=== PATIENT | male | born 1940 | race Caucasian/White ===

== ENCOUNTER 2017-06-08 21:11 | Inpatient (IN) ==
[2017-06-08 22:25] LABS: Basophils % 0.3 %; Eosinophils # 0.1 K/mcL (0.0-0.6); Eosinophils % 1.2 %; Hematocrit 42.7 % (37.5-50.1); Hemoglobin 14.4 g/dL (12.9-16.9); Immature Granulocytes % 0.5 % (0-4); Lymphocytes # 0.9 K/mcL (0.6-4.6); Lymphocytes % 8.2 %; Mean Corpuscular HGB Conc 33.7 g/dL (31.6-35.5); Mean Corpuscular Hemoglobin 29.1 pg (28.0-33.3); Mean Corpuscular Volume 86.3 fL (83.0-100.0); Mean Platelet Volume 9.9 fL (9.4-12.4); Monocytes % 8.7 %; Neutrophils # 9.2 K/mcL (1.6-8.9); Platelet Count 125 K/mcL (140-400); Red Blood Count 4.95 M/mcL (4.19-5.50); Red Cell Distribution Width 13.8 % (11.5-14.5); Segmented Neutrophils % 81.1 %
[2017-06-08 22:46] LABS: BUN/Creatinine Ratio 24 (6-26); Blood Urea Nitrogen 25 mg/dL (8-23); Calcium 9.5 mg/dL (8.6-10.3); Carbon Dioxide 23 mEq/L (23-29); Chloride 107 mEq/L (98-107); Glucose 145 mg/dL (70-105); Osmolality,Calculated 291 (280-300); Potassium 4.4 mEq/L (3.5-5.1); Sodium 137 mEq/L (136-145); eGFR For African Americans > 60 (> 60); eGFR For Non-African Americans > 60 (> 60)
[2017-06-08 22:47] LABS: Troponin I 0.03 ng/mL (< 0.04)
[2017-06-08] MEDS ORDERED: Isovue-370 500 ML INFUS..BTL IV ONE (22:47)
[2017-06-08] MEDS ORDERED: 0.9 % Sodium Chloride 1,000 ML IVC ONE (22:48)
--- NOTE | 2017-06-08 23:01 | Emergency Department Note ---
Disposition Clinical Impression: Community acquired pneumonia, Elevated lactic acid level, Sepsis Disposition: Admitted As Inpatient Condition: Good Referrals: Lisandra Stevenson CNP [Primary Care Provider] - Forms: ED Satisfaction Letter Time of Disposition: 02:15 SOB HPI - General Chief Complaint: ED Shortness of Breath/Dyspnea Stated Complaint: Possible pneumonia Time Seen by Provider: 06/08/17 22:43 Source: family Mode of arrival: ambulatory Limitations: no limitations Nursing Notes Reviewed: Yes Vital Signs Reviewed: Yes - History of Present Illness Patient presents to the ED with the chief complaint of "I think I have pneumonia ". Patient has an extensive coronary artery disease, history with multiple bypasses and stents. Also has a defibrillator. States that he has had a cough for the last 3 days or so. He said some intermittent chest pain over the last couple weeks that is poorly localized and he states just hurts. States that today he became much more short of breath than usual. States that he could barely get up from his couch to walk into the kitchen without becoming winded. Has had subjective fever and chills and some diaphoresis. Reports he was having abdominal pain earlier in the day but that resolved. No vomiting or diarrhea. Some mild nausea. No rash or pain or swelling in his legs. States that he has a history of CHF, but is no longer on Lasix because he has not had any problems in a while. - Related Data Home Medications Medication Instructions Recorded Confirmed Albuterol Sulfate [Ventolin Hfa] 18 gm IH Q4H PRN 05/14/17 05/14/17 Aspirin [Ecotrin] 325 mg PO DAILY 05/14/17 05/14/17 Carvedilol 12.5 mg PO BID 05/14/17 05/14/17 Digoxin [Lanoxin] 250 mcg PO DAILY 05/14/17 05/14/17 Escitalopram [Lexapro] 10 mg PO DAILY 05/14/17 05/14/17 Famotidine [Heartburn Prevention] 20 mg PO BID 05/14/17 05/14/17 Finasteride [Proscar] 5 mg PO DAILY 05/14/17 05/14/17 Loratadine [Claritin] 10 mg PO DAILY PRN 05/14/17 05/14/17 Lovastatin 40 mg PO DAILY 05/14/17 05/14/17 Quinapril HCl [Accupril] 20 mg PO DAILY 05/14/17 05/14/17 Spironolactone [Aldactone] 25 mg PO DAILY 05/14/17 05/14/17 Zolpidem [Ambien] 5 mg PO HS 05/14/17 05/14/17 Allergies Allergy/AdvReac Type Severity Reaction Status Date / Time No Known Allergies Allergy Verified 06/08/17 21:31 Review of Systems: As reviewed in the HPI. All other systems reviewed are negative or normal. Past Medical History - Past Medical History Attestation: Yes The following information was validated with the patient. Source: patient, old records reviewed, obtained from family Medical history: Reports: arthritis, myocardial infarction - Social History Smoking Status: Former smoker Alcohol use: Reports: occasionally Drug use: Reports: none Physical Exam - General Limitations: no limitations General appearance: alert, in no apparent distress - Chest Chest inspection: Present: normal inspection, symmetric chest wall rise - Respiratory Respiratory exam: Present: normal lung sounds bilaterally. Absent: respiratory distress - Cardiovascular Cardiovascular exam: Present: regular rate, normal rhythm, normal heart sounds - Abdominal Exam Abdominal exam: Present: soft, tenderness, distention Abdominal tenderness: Present: diffuse, mild - Extremities Exam Extremities exam: Present: normal inspection, full ROM. Absent: tenderness, pedal edema - Neurological Exam Neurological exam: Present: alert, oriented X3 - Psychiatric Psychiatric exam: Present: normal affect, normal mood - Skin Skin exam: Present: warm, dry, intact, normal color Course Course Narrative: Patient presenting to the ED with what sounds like could be pneumonia. He has had cough, subjective fever, dyspnea, but was worse today. Also considering ACS and PE. Labs, chest x-ray, EKG, troponin. Likely will CTA chest. If this does not show an obvious pneumonia. - Reevaluation(s) Reevaluation #1: Patient clinically has pneumonia. We will start on antibiotics. Lactic slightly elevated. We will give some IV fluids and recheck. Reevaluation #2: accepted for admission with Dr. Sears Vital Signs Temperature 98.3 F 06/08/17 21:32 Pulse Rate 77 06/08/17 21:32 Respiratory Rate 18 06/08/17 21:32 Blood Pressure 109/71 06/08/17 21:32 O2 Sat by Pulse Oximetry 94 06/08/17 21:32 Temperature 101.6 F H 06/09/17 01:37 Pulse Rate 70 06/09/17 01:37 Respiratory Rate 20 06/09/17 01:37 Blood Pressure 139/82 06/09/17 01:37 O2 Sat by Pulse Oximetry 94 06/09/17 01:37 Oxygen Delivery Oxygen Delivery Nasal Cannula Shortness of Breath/Dyspnea - Lab Data Result diagrams: 06/08/17 21:36 06/08/17 21:36 Lab Results 06/08/17 06/08/17 06/08/17 Range/Units 21:36 21:36 21:36 WBC 11.3 H (4.3-11.1) K/mcL RBC 4.95 (4.19-5.50) M/mcL Hgb 14.4 (12.9-16.9) g/dL Hct 42.7 (37.5-50.1) % MCV 86.3 (83.0-100.0) fL MCH 29.1 (28.0-33.3) pg MCHC 33.7 (31.6-35.5) g/dL RDW 13.8 (11.5-14.5) % Plt Count 125 L (140-400) K/mcL MPV 9.9 (9.4-12.4) fL Immature Gran % 0.5 (0-4) % Seg Neutrophils % 81.1 % Lymphocytes % 8.2 % Monocytes % 8.7 % Eosinophils % 1.2 % Basophils % 0.3 % Neutrophils # 9.2 H (1.6-8.9) K/mcL Lymphocytes # 0.9 (0.6-4.6) K/mcL Monocytes # 1.0 (0.0-1.3) K/mcL Eosinophils # 0.1 (0.0-0.6) K/mcL Basophils # 0.0 (0.0-0.2) K/mcL Sodium 137 (136-145) mEq/L Potassium 4.4 (3.5-5.1) mEq/L Chloride 107 (98-107) mEq/L Carbon Dioxide 23 (23-29) mEq/L BUN 25 H (8-23) mg/dL Creatinine 1.03 (0.70-1.30) mg/dL Est GFR ( Amer) > 60 (> 60) Est GFR (Non-Af Amer) > 60 (> 60) BUN/Creatinine Ratio 24 (6-26) Glucose 145 H (70-105) mg/dL Calculated Osmolality 291 (280-300) Lactic Acid (0.5-2.2) mmol/L Calcium 9.5 (8.6-10.3) mg/dL Troponin I 0.03 (< 0.04) ng/mL B-Natriuretic Peptide 212 H (Less than 100) pg/mL Urine Color (Yellow) Urine Clarity (Clear) Urine pH (5.0-8.0) pH Units Ur Specific [place] (1.010-1.025) Urine Protein (Neg-Trace) mg/dL Urine Glucose (UA) (Normal) mg/dL Urine Ketones (Negative) mg/dL Urine Blood (Negative) Urine Nitrite (Negative) Urine Bilirubin (Negative) Urine Urobilinogen (Normal) mg/dL Ur Leukocyte Esterase (Negative) Ur Culture Indicated? (NO) 06/08/17 06/09/17 06/09/17 Range/Units 22:51 00:50 01:01 WBC (4.3-11.1) K/mcL RBC (4.19-5.50) M/mcL Hgb (12.9-16.9) g/dL Hct (37.5-50.1) % MCV (83.0-100.0) fL MCH (28.0-33.3) pg MCHC (31.6-35.5) g/dL RDW (11.5-14.5) % Plt Count (140-400) K/mcL MPV (9.4-12.4) fL Immature Gran % (0-4) % Seg Neutrophils % % Lymphocytes % % Monocytes % % Eosinophils % % Basophils % % Neutrophils # (1.6-8.9) K/mcL Lymphocytes # (0.6-4.6) K/mcL Monocytes # (0.0-1.3) K/mcL Eosinophils # (0.0-0.6) K/mcL Basophils # (0.0-0.2) K/mcL Sodium (136-145) mEq/L Potassium (3.5-5.1) mEq/L Chloride (98-107) mEq/L Carbon Dioxide (23-29) mEq/L BUN (8-23) mg/dL Creatinine (0.70-1.30) mg/dL Est GFR ( Amer) (> 60) Est GFR (Non-Af Amer) (> 60) BUN/Creatinine Ratio (6-26) Glucose (70-105) mg/dL Calculated Osmolality (280-300) Lactic Acid 2.4 H 0.9 (0.5-2.2) mmol/L Calcium (8.6-10.3) mg/dL Troponin I (< 0.04) ng/mL B-Natriuretic Peptide (Less than 100) pg/mL Urine Color Yellow (Yellow) Urine Clarity Clear (Clear) Urine pH 7.0 (5.0-8.0) pH Units Ur Specific [place] > 1.030 H (1.010-1.025) Urine Protein Negative (Neg-Trace) mg/dL Urine Glucose (UA) Normal (Normal) mg/dL Urine Ketones Negative (Negative) mg/dL Urine Blood Negative (Negative) Urine Nitrite Negative (Negative) Urine Bilirubin Negative (Negative) Urine Urobilinogen Normal (Normal) mg/dL Ur Leukocyte Esterase Negative (Negative) Ur Culture Indicated? NO (NO)
[2017-06-09] MEDS ORDERED: Isovue-370 500 ML INFUS..BTL IV ONE (00:30)
[2017-06-09] MEDS ORDERED: Azithromycin 500 MG in D5% in Water 250 ML IVPB ONE (01:05)
[2017-06-09] MEDS ORDERED: cefTRIAXone 1,000 MG in Water for inj. (sterile) 20 ML 10 ML IVPB ONE (01:05)
[2017-06-09] MEDS ORDERED: 0.9 % Sodium Chloride 1,000 ML IVC ONE (01:12)
[2017-06-09 01:22] LABS: Bilirubin,Urine Negative (Negative); Blood,Urine Negative (Negative); Clarity,Urine Clear (Clear); Color,Urine Yellow (Yellow); Glucose,Urine (UA) Normal (Normal); Ketones,Urine Negative (Negative); Leukocyte Esterase,Urine Negative (Negative); Nitrite,Urine Negative (Negative); Protein,Urine Negative (Neg-Trace); Specific Gravity,Urine > 1.030 (1.010-1.025); Urobilinogen,Urine Normal (Normal)
--- NOTE | 2017-06-09 02:02 | Emergency Department Note ---
Disposition Clinical Impression: Community acquired pneumonia, Elevated lactic acid level, Sepsis Disposition: Admitted As Inpatient Condition: Good Referrals: Lisandra Stevenson CNP [Primary Care Provider] - Forms: ED Satisfaction Letter General Adult HPI - General Chief complaint: ED Shortness of Breath/Dyspnea Stated complaint: Possible pneumonia Time Seen by Provider: 06/08/17 22:43 Source: family Mode of arrival: ambulatory Limitations: no limitations Nursing Notes Reviewed: Yes Vital Signs Reviewed: Yes - History of Present Illness Pain Scale: 5 - Related Data Home Medications Medication Instructions Recorded Confirmed Albuterol Sulfate [Ventolin Hfa] 18 gm IH Q4H PRN 05/14/17 06/09/17 Aspirin [Ecotrin] 325 mg PO DAILY 05/14/17 06/09/17 Carvedilol 12.5 mg PO BID 05/14/17 06/09/17 Digoxin [Lanoxin] 250 mcg PO DAILY 05/14/17 06/09/17 Escitalopram [Lexapro] 10 mg PO DAILY 05/14/17 06/09/17 Famotidine [Heartburn Prevention] 20 mg PO BID 05/14/17 06/09/17 Loratadine [Claritin] 10 mg PO DAILY PRN 05/14/17 06/09/17 Lovastatin 40 mg PO DAILY 05/14/17 06/09/17 Quinapril HCl [Accupril] 20 mg PO DAILY 05/14/17 06/09/17 Spironolactone [Aldactone] 25 mg PO DAILY 05/14/17 06/09/17 Zolpidem [Ambien] 5 mg PO HS 05/14/17 06/09/17 Ibuprofen [Motrin] 800 mg PO DAILY 06/09/17 06/09/17 Oxycodone HCl/Acetaminophen 1 each PO Q6HR PRN 06/09/17 06/09/17 [Percocet 10-325 mg Tablet] diazePAM [Valium] 5 mg PO BID 06/09/17 06/09/17 Allergies Allergy/AdvReac Type Severity Reaction Status Date / Time No Known Allergies Allergy Verified 06/08/17 21:31 Past Medical History - Past Medical History Medical history: Reports: arthritis, myocardial infarction - Social History Smoking Status: Former smoker Alcohol use: Reports: occasionally Drug use: Reports: none Physical Exam - General Limitations: no limitations General appearance: alert, in no apparent distress Course Vital Signs Temperature 98.3 F 06/08/17 21:32 Pulse Rate 77 06/08/17 21:32 Respiratory Rate 18 06/08/17 21:32 Blood Pressure 109/71 06/08/17 21:32 O2 Sat by Pulse Oximetry 94 06/08/17 21:32 Temperature 101.6 F H 06/09/17 01:37 Pulse Rate 71 06/09/17 02:29 Respiratory Rate 18 06/09/17 02:29 Blood Pressure 131/79 06/09/17 02:29 O2 Sat by Pulse Oximetry 94 06/09/17 02:29 Oxygen Delivery Oxygen Delivery Nasal Cannula Medical Decision Making - Lab Data Result diagrams: 06/08/17 21:36 06/08/17 21:36 Lab Results 06/08/17 06/08/17 06/08/17 Range/Units 21:36 21:36 21:36 WBC 11.3 H (4.3-11.1) K/mcL RBC 4.95 (4.19-5.50) M/mcL Hgb 14.4 (12.9-16.9) g/dL Hct 42.7 (37.5-50.1) % MCV 86.3 (83.0-100.0) fL MCH 29.1 (28.0-33.3) pg MCHC 33.7 (31.6-35.5) g/dL RDW 13.8 (11.5-14.5) % Plt Count 125 L (140-400) K/mcL MPV 9.9 (9.4-12.4) fL Immature Gran % 0.5 (0-4) % Seg Neutrophils % 81.1 % Lymphocytes % 8.2 % Monocytes % 8.7 % Eosinophils % 1.2 % Basophils % 0.3 % Neutrophils # 9.2 H (1.6-8.9) K/mcL Lymphocytes # 0.9 (0.6-4.6) K/mcL Monocytes # 1.0 (0.0-1.3) K/mcL Eosinophils # 0.1 (0.0-0.6) K/mcL Basophils # 0.0 (0.0-0.2) K/mcL Sodium 137 (136-145) mEq/L Potassium 4.4 (3.5-5.1) mEq/L Chloride 107 (98-107) mEq/L Carbon Dioxide 23 (23-29) mEq/L BUN 25 H (8-23) mg/dL Creatinine 1.03 (0.70-1.30) mg/dL Est GFR ( Amer) > 60 (> 60) Est GFR (Non-Af Amer) > 60 (> 60) BUN/Creatinine Ratio 24 (6-26) Glucose 145 H (70-105) mg/dL Calculated Osmolality 291 (280-300) Lactic Acid (0.5-2.2) mmol/L Calcium 9.5 (8.6-10.3) mg/dL Troponin I 0.03 (< 0.04) ng/mL B-Natriuretic Peptide 212 H (Less than 100) pg/mL Urine Color (Yellow) Urine Clarity (Clear) Urine pH (5.0-8.0) pH Units Ur Specific [place] (1.010-1.025) Urine Protein (Neg-Trace) mg/dL Urine Glucose (UA) (Normal) mg/dL Urine Ketones (Negative) mg/dL Urine Blood (Negative) Urine Nitrite (Negative) Urine Bilirubin (Negative) Urine Urobilinogen (Normal) mg/dL Ur Leukocyte Esterase (Negative) Ur Culture Indicated? (NO) 06/08/17 06/09/17 06/09/17 Range/Units 22:51 00:50 01:01 WBC (4.3-11.1) K/mcL RBC (4.19-5.50) M/mcL Hgb (12.9-16.9) g/dL Hct (37.5-50.1) % MCV (83.0-100.0) fL MCH (28.0-33.3) pg MCHC (31.6-35.5) g/dL RDW (11.5-14.5) % Plt Count (140-400) K/mcL MPV (9.4-12.4) fL Immature Gran % (0-4) % Seg Neutrophils % % Lymphocytes % % Monocytes % % Eosinophils % % Basophils % % Neutrophils # (1.6-8.9) K/mcL Lymphocytes # (0.6-4.6) K/mcL Monocytes # (0.0-1.3) K/mcL Eosinophils # (0.0-0.6) K/mcL Basophils # (0.0-0.2) K/mcL Sodium (136-145) mEq/L Potassium (3.5-5.1) mEq/L Chloride (98-107) mEq/L Carbon Dioxide (23-29) mEq/L BUN (8-23) mg/dL Creatinine (0.70-1.30) mg/dL Est GFR ( Amer) (> 60) Est GFR (Non-Af Amer) (> 60) BUN/Creatinine Ratio (6-26) Glucose (70-105) mg/dL Calculated Osmolality (280-300) Lactic Acid 2.4 H 0.9 (0.5-2.2) mmol/L Calcium (8.6-10.3) mg/dL Troponin I (< 0.04) ng/mL B-Natriuretic Peptide (Less than 100) pg/mL Urine Color Yellow (Yellow) Urine Clarity Clear (Clear) Urine pH 7.0 (5.0-8.0) pH Units Ur Specific [place] > 1.030 H (1.010-1.025) Urine Protein Negative (Neg-Trace) mg/dL Urine Glucose (UA) Normal (Normal) mg/dL Urine Ketones Negative (Negative) mg/dL Urine Blood Negative (Negative) Urine Nitrite Negative (Negative) Urine Bilirubin Negative (Negative) Urine Urobilinogen Normal (Normal) mg/dL Ur Leukocyte Esterase Negative (Negative) Ur Culture Indicated? NO (NO) Attestation Statement - Attestation Attestation: I, Nomi Vasquez MD, personally evaluated this patient and discussed their management with the resident physician. I reviewed the resident's note and agree with the documented findings, medical decision making, and plan of care. 77-year-old male presents to the emergency department with a complaint of a productive cough for the past few days and today developed significantly increased shortness of breath. Some mild intermittent chest pain more related to coughing. Chills and subjective fever. Patient is unsure of the color of the sputum because he states he does not look at it. On examination patient is a well-developed well-nourished well-appearing elderly male in no acute distress. He is alert and oriented 3. There is no cyanosis or diaphoresis. Chest is nontender to palpation. Breath sounds are decreased bilaterally with no definite rales or wheezes noted. Heart regular rate and rhythm. Abdomen soft and nontender with normal bowel sounds. Labs reviewed. WBC 11.3 with 81% segs. Acid 2.4. Chest x-ray negative. CTA of the chest shows no evidence of pulmonary embolism. CT the abdomen and pelvis shows: 1. Cholelithiasis without evidence for acute cholecystitis. 2. 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 Recommended follow-up for an aneurysm of this size is every 5 years. 3. Bilateral lower lobe atelectasis and/or pneumonia. Blood cultures obtained. Patient received Rocephin and Zithromax IV. The hospitalist, Dr. Sears, was consulted and accepted admission of the patient.
[2017-06-09] MEDS ORDERED: Acetaminophen 325 MG TABLET PO PRN (02:39)
[2017-06-09] MEDS ORDERED: Naloxone 0.4 MG/ML INJ IVP PRN (02:39)
[2017-06-09] MEDS ORDERED: Albuterol 2.5 MG/3 ML NEBULIZER IH PRN (02:39)
[2017-06-09] MEDS ORDERED: Loratadine 10 MG TABLET PO PRN (02:52)
--- NOTE | 2017-06-09 03:00 | Internal Med History&Physical ---
Date of Encounter: 06/09/17 Time of Encounter: 01:45 Internal Medicine - H&P: HPI Chief complaint: cough, fever, SOB, chest pain Admitted From: Emergency Dept Plans for Post Hospital Care: Home History of present illness: Mr. Reed is a 77 year old male who presents to the ER tonight with 5 day history of cough, shortness of breath, and pleuritic-type chest pain. He then developed a fever tonight, and his and daughter forced him to come to the ER for evaluation. He was reluctant to come to the ER until tonight. Workup in ER revealed clinical findings concerning for pneumonia. CT angio was performed for concern of possible PE, but it was negative. Given his leukocytosis, fever, and suspicion for sepsis, he was admitted to the hospitalist service. Upon my assessment of the patient, he appears acutely ill but nontoxic. He and his and daughter confirm above symptoms. He describes his pain as more pleuritic in nature and associated with coughing. He does have a history of heart disease and had a CABG many years ago. His EKG is unremarkable with regards to ischemic findings. Despite negative imaging, I agree clinically with ER staff that he has pneumonia. He has had multiple ill contacts, including influenza. His flu test here was negative. Patient has had some nausea but no vomiting or diarrhea. He has had some shakes, chills, along with his fevers. Appetite and fluid intake have been diminished as well. Past Med Surg Social Fam HX - Past Medical History Attestation: Yes The following information was validated with the patient. Source: patient, old records reviewed, obtained from family Medical history: arthritis, coronary artery disease, myocardial infarction Psychiatric history: no psych history - Past Surgical History Surgical History: coronary bypass (CABG), herniorrhaphy - Social History Smoking Status: Former smoker Alcohol use: occasionally Drug use: none Current living situation: Home, With Family Activity Level: Independent ambulation Recent Out of Country Travel Within the Last 8 Weeks: No - Family History Mother Living Status: Hx Family Cardiac Disorders: Yes Father Living Status: Hx Family Cardiac Disorders: Yes Internal Medicine - H&P: Meds Albuterol Sulfate [Ventolin Hfa] 18 gm IH Q4H PRN 05/14/17 [History] Aspirin [Ecotrin] 325 mg PO DAILY 05/14/17 [History] Carvedilol 12.5 mg PO BID 05/14/17 [History] Digoxin [Lanoxin] 250 mcg PO DAILY 05/14/17 [History] Escitalopram [Lexapro] 10 mg PO DAILY 05/14/17 [History] Famotidine [Heartburn Prevention] 20 mg PO BID 05/14/17 [History] Loratadine [Claritin] 10 mg PO DAILY PRN 05/14/17 [History] Lovastatin 40 mg PO DAILY 05/14/17 [History] Quinapril HCl [Accupril] 20 mg PO DAILY 05/14/17 [History] Spironolactone [Aldactone] 25 mg PO DAILY 05/14/17 [History] Zolpidem [Ambien] 5 mg PO HS 05/14/17 [History] Ibuprofen [Motrin] 800 mg PO DAILY 06/09/17 [History] Oxycodone HCl/Acetaminophen [Percocet 10-325 mg Tablet] 1 each PO Q6HR PRN 06/09 [History] diazePAM [Valium] 5 mg PO BID 06/09/17 [History] 3 Allergy/AdvReac Type Severity Reaction Status Date / Time No Known Allergies Allergy Verified 06/08/17 21:31 - Constitutional Constitutional: chills, fever(s), malaise, no night sweats - EENT Eyes: no blurry vision, no change in vision Ears: ear pain, no tinnitus Nose, mouth and throat: nasal congestion, no nasal discharge, no sinus pressure , no sore throat - Cardiovascular Cardiovascular ROS IM: chest pain (pleuritic), dyspnea, no edema, no lightheadedness, no orthopnea, no paroxysmal nocturnal dyspnea - Respiratory Respiratory: cough, dyspnea, dyspnea on exertion, wheezing, chest congestion, excessive phlegm production, change in phlegm color, pain with cough, no hemoptysis - Gastrointestinal Gastrointestinal: abdominal pain (with coughing), nausea, no diarrhea, no hematemesis, no hematochezia, no melena, no vomiting - Genitourinary Genitourinary ROS male: no dysuria, no flank pain, no hematuria - Musculoskeletal Musculoskeletal ROS IM: muscle cramps, myalgias, no arthralgias, no back pain - Integumentary Integumentary IM: no rash, no jaundice - Neurological Neurological ROS: no dizziness, no focal weakness, no frequent falls, no headache(s) - Psychiatric Psychiatric: no anxiety, no depression - Endocrine Endocrine IM: no polydipsia, no polyuria - Hematologic/Lymphatic Hematologic/Lymphatic: easy bruising, no lymphadenopathy - Allergic/Immunologic Allergic/Immunologic: wheezing, no GI upset with certain foods - Constitutional Vitals: Temp Pulse Resp BP Pulse Ox 101.6 F H 71 18 131/79 94 06/09/17 01:37 06/09/17 02:29 06/09/17 02:29 06/09/17 02:29 06/09/17 02:29 General appearance: Present: cooperative, mild distress, A&O X 3, pleasant, answers questions appropriately Exam: appears ill but non-toxic - Head Head exam: Present: atraumatic, normal inspection - Eye Eye exam: Present: EOMI, normal appearance, PERRL. Absent: scleral icterus Pupils: Present: normal accommodation - ENT ENT exam: Present: mucous membranes dry, normal exam, normal oropharynx Additional comments: TM's normal bilaterally - Neck Neck exam general surgery: Present: full ROM, supple. Absent: lymphadenopathy, tenderness, nuchal rigidity, thyromegaly - Respiratory Respiratory exam: Present: prolonged expiratory phase, rales (predominantly in left base), respiratory distress (mild), wheezes, tachypnea. Absent: chest wall tenderness - Cardiovascular Cardiovascular exam: Present: distant heart sounds, RRR, +S1, +S2. Absent: diastolic murmur, JVD, systolic murmur - GI/Abdominal GI/Abdominal exam: Present: soft, no peritoneal signs. Absent: guarding, hepatomegaly, mass, rebound, splenomegaly, tenderness - Extremities Exam Extremities exam: Present: full ROM, normal capillary refill, warm, radial pulses palpable and symmetrical. Absent: calf tenderness, joint swelling, pedal edema, tenderness - Back Exam Back exam: Present: normal inspection. Absent: CVA tenderness (L), CVA tenderness (R) - Neurological Exam Neurological exam: Present: alert, CN II-XII intact, oriented X3, no focal deficits - Psychiatric Psychiatric exam: Present: normal affect, normal mood - Skin Skin exam: Present: dry, warm. Absent: rash Internal Med - H&P Results - Labs CBC & Chem 7: 06/08/17 21:36 06/08/17 21:36 Labs: Short CBC 06/08/17 Range/Units 21:36 WBC 11.3 H (4.3-11.1) K/mcL Hgb 14.4 (12.9-16.9) g/dL Hct 42.7 (37.5-50.1) % Plt Count 125 L (140-400) K/mcL Neutrophils # 9.2 H (1.6-8.9) K/mcL BMP 06/08/17 21:36 Sodium 137 Potassium 4.4 Chloride 107 Carbon Dioxide 23 BUN 25 H Creatinine 1.03 Glucose 145 H Calcium 9.5 Cardiac Enzymes 06/08/17 Range/Units 21:36 Troponin I 0.03 (< 0.04) ng/mL Urine 06/09/17 Range/Units 00:50 Urine Color Yellow (Yellow) Urine Clarity Clear (Clear) Urine pH 7.0 (5.0-8.0) pH Units Ur Specific [place] > 1.030 H (1.010-1.025) Urine Protein Negative (Neg-Trace) mg/dL Urine Glucose (UA) Normal (Normal) mg/dL - EKG Data -: EKG Interpreted by Myself - EKG Data EKG comments: 06/09/17 03:06 NSR; 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 D/ / Clayton Matthews MD / Clayton Matthews MD Interpreting Provider: Clayton Matthews MD Chest CTA 06/08/17 22:47 IMPRESSION: No evidence of pulmonary embolism. Mild lower lung zone bronchial wall thickening may reflect acute or chronic inflammatory changes. D/ / Yazan Fierro MD / Yazan Fierro MD Interpreting Provider: Yazan Fierro MD Abdomen/Pelvis CT 06/09/17 00:30 IMPRESSION: 1. Cholelithiasis without evidence for acute cholecystitis. 2. 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 Recommended follow-up for an aneurysm of this size is every 5 years. 3. Bilateral lower lobe atelectasis and/or pneumonia. D/ / Clayton Matthews MD / Clayton Matthews MD Interpreting Provider: Clayton Matthews MD - Diagnostic Studies Chest x-ray Status: image reviewed by me (negative) - Assessment and plan (1) Sepsis Current Visit: Yes Status: Acute Assessment and plan: 1. Patient fluid resuscitated in ER. 2. Lactate levels trended in ER and normalized 3. Blood cultures were not initially performed in ER, but I asked them to obtain STAT. 4. Likely source is pneumonia. 5. Continue IV antibiotics and follow clinically while monitoring hemodynamics. Qualifiers: Sepsis type: sepsis due to unspecified organism Qualified Code(s): A41.9 - Sepsis, unspecified organism (2) Community acquired pneumonia Current Visit: Yes Status: Acute Assessment and plan: 1, Despite negative imaging, I agree with ER that patient has pneumonia based upon clinical assessment. 2. Blood cultures and fluid resuscitation as above. 3. IV Rocephin and Zithromax. 4. Aerosols and oxygen as needed. Qualifiers: Laterality: left Lung location: lower lobe of lung Qualified Code(s): J18.1 - Lobar pneumonia, unspecified organism (3) Chest pain Current Visit: Yes Status: Acute Assessment and plan: 1. I suspect this is pleuritic and due to pneumonia. 2. Will trend troponins and EKG's. 3. Order ECHO to assess LV function. 4. 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 Benjamin Carson. Qualifiers: Chest pain type: chest pain on breathing Qualified Code(s): R07.1 - Chest pain on breathing; R07.81 - Pleurodynia (4) DVT prophylaxis Current Visit: Yes Status: Acute Assessment and plan: 1. Heparin SQ.
[2017-06-09] MEDS: Ipratropium/Albuterol Neb 3 ML IH SCH ×4 (03:22→22:39)
[2017-06-09] MEDS: 0.9 % Sodium Chloride 1,000 ML IVC SCH ×2 (04:52→16:46)
[2017-06-09] MEDS: *HR* Heparin 5,000 UNIT/ML VIAL SQ SCH ×2 (06:08→16:45)
[2017-06-09] MEDS: *HR* OxyCODONE/APAP 10/325 TABLET PO PRN ×3 (06:08→20:48)
[2017-06-09 06:15] LABS: Basophils % 0.2 %; Eosinophils # 0.1 K/mcL (0.0-0.6); Eosinophils % 0.6 %; Hematocrit 37.6 % (37.5-50.1); Immature Granulocytes % 0.6 % (0-4); Lymphocytes # 1.3 K/mcL (0.6-4.6); Lymphocytes % 12.7 %; Mean Corpuscular HGB Conc 32.7 g/dL (31.6-35.5); Mean Corpuscular Hemoglobin 28.4 pg (28.0-33.3); Mean Corpuscular Volume 86.8 fL (83.0-100.0); Mean Platelet Volume 10.3 fL (9.4-12.4); Monocytes # 0.9 K/mcL (0.0-1.3); Monocytes % 8.5 %; Neutrophils # 8.2 K/mcL (1.6-8.9); Nucleated Red Blood Cells 0.2 /100 WBC (0); Platelet Count 115 K/mcL (140-400); Red Blood Count 4.33 M/mcL (4.19-5.50); Segmented Neutrophils % 77.4 %
[2017-06-09 06:18] LABS: Hemoglobin 12.3 g/dL (12.9-16.9)
[2017-06-09 06:20] LABS: INR 1.3; Prothrombin Time 13.6 Seconds (9.4-12.1)
[2017-06-09 06:23] LABS: Activated Partial Thrombo Time 28.5 Seconds (26.0-36.0)
[2017-06-09 06:37] LABS: Alanine Aminotransferase 15 Units/L (7-52); Albumin 3.9 g/dL (3.5-5.7); Albumin/Globulin Ratio 1.8 (1.1-2.2); Alkaline Phosphatase 42 Units/L (34-104); Aspartate Amino Transferase 15 Units/L (13-39); BUN/Creatinine Ratio 21 (6-26); Blood Urea Nitrogen 19 mg/dL (8-23); Calcium 8.5 mg/dL (8.6-10.3); Carbon Dioxide 23 mEq/L (23-29); Chloride 106 mEq/L (98-107); Chol/HDL Ratio 3.7 (0-4.9); Cholesterol 111 mg/dL (< 200); Globulin 2.2 g/dL (2.4-3.5); Glucose 175 mg/dL (70-105); HDL Cholesterol 30 mg/dL (40-59); LDL Cholesterol,Calculated 64 mg/dL (0-99); Osmolality,Calculated 293 (280-300); Potassium 3.7 mEq/L (3.5-5.1); Sodium 138 mEq/L (136-145); Total Protein 6.1 g/dL (6.4-8.9); Triglycerides 85 mg/dL (< 150); Troponin I 0.03 ng/mL (< 0.04); eGFR For African Americans > 60 (> 60); eGFR For Non-African Americans > 60 (> 60)
[2017-06-09] MEDS: diazePAM 5 MG TABLET PO SCH ×2 (09:12→20:49)
[2017-06-09] MEDS: Famotidine 20 MG TABLET PO SCH ×2 (09:12→20:49)
[2017-06-09] MEDS: Lisinopril 20 MG TABLET PO SCH (09:13)
[2017-06-09] MEDS: *HR* Digoxin 0.25 MG TABLET PO SCH (09:13)
[2017-06-09] MEDS: cefTRIAXone 2,000 MG in Water for inj. (sterile) 20 ML 20 ML IVP SCH (09:13)
[2017-06-09] MEDS: Azithromycin 500 MG in D5% in Water 250 ML IVPB SCH (09:13)
[2017-06-09] MEDS: Aspirin Enteric Coated 325 MG Tablet PO SCH (09:13)
--- NOTE | 2017-06-09 13:17 | Internal Med Progress Note ---
Date of Encounter: 06/09/17 Time of Encounter: 10:15 - Assessment and plan (1) Community acquired pneumonia Current Visit: Yes Status: Acute Assessment and plan: Pt reports 1 week history of cough, sometimes productive, pleuritic chest pain, dyspnea, and fever. Pt currently without SIRS or sepsis criteria. Leukocytosis has resolved. Pt is not requiring supplemental 02. Lungs are clear and diminished throughout. Continue IV Azithromycin and IV Ceftriaxone Continue albtueral nebs prn 02 as needed to maintain sats > 92% Monitor vitals and labs Chest X-Ray 06/08/17 21:36 IMPRESSION: No acute disease. D/ / Clayton Matthews MD / Clayton Matthews MD Interpreting Provider: Clayton Matthews MD Chest CTA 06/08/17 22:47 IMPRESSION: No evidence of pulmonary embolism. Mild lower lung zone bronchial wall thickening may reflect acute or chronic inflammatory changes. D/ / Yazan Fierro MD / Yazan Fierro MD Interpreting Provider: Yazan Fierro MD Qualifiers: Laterality: left Lung location: lower lobe of lung Qualified Code(s): J18.1 - Lobar pneumonia, unspecified organism (2) Sepsis Current Visit: Yes Status: Resolved Assessment and plan: Resolved. Pt without leukocytosis, fever, tachycardia, or hypotension. Lactic WNL. Monitor pt and labs. Qualifiers: Sepsis type: sepsis due to unspecified organism Qualified Code(s): A41.9 - Sepsis, unspecified organism (3) Chest pain Current Visit: Yes Status: Acute Assessment and plan: Chest pain most likely pleuritic vs cardiac in nature. Pain is not reproducible. Troponins negative, chest xray negative for acute disease, CTA chest shows pneumonia. EKG NSR without ST changes. Continue to monitor and if pain continues, treat with ASA, NTG. 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 Qualifiers: Chest pain type: chest pain on breathing Qualified Code(s): R07.1 - Chest pain on breathing; R07.81 - Pleurodynia (4) DVT prophylaxis Current Visit: Yes Status: Acute Assessment and plan: Heparin SQ - Time Spent With Patient Total time spent is greater than 50% in coordination of care (as documented) at patient's floor/unit and/or counseling patient: less than 15 minutes - Subjective Interval history: Pt was seen and assessed at 1015 a.m. He is alert and oriented and pleasant. He states that he has been feeling badly for about a week, but since he didn't have a fever, he didn't come to the ER. His family persuaded him to come once he developed a fever. He reports sometimes productive cough x 1 week, diarrhea last night, and shortness of breath. He denies headache, n/v, chest pain, abdominal pain, peripheral edema. Pt is agreeable to stay for continued treatment and evaluation. - Constitutional Vitals: Temp Pulse Resp BP Pulse Ox 97.5 F L 60 15 92/56 94 06/09/17 11:42 06/09/17 11:42 06/09/17 11:42 06/09/17 11:42 06/09/17 11:42 General appearance: Present: cooperative, mild distress, A&O X 3, pleasant, no acute distress, answers questions appropriately - Head Head exam: Present: atraumatic, normal inspection, normocephalic - Eye Eye exam: Present: normal appearance, conjuntiva pink, sclera anicteric - Neck Neck exam general surgery: Present: normal inspection, supple, trachea midline. Absent: lymphadenopathy, tenderness - Respiratory Respiratory exam: Present: decreased breath sounds, CTAB. Absent: accessory muscle use, chest wall tenderness, rales, respiratory distress, rhonchi, wheezes - Cardiovascular Cardiovascular exam: Present: RRR, +S1, +S2. Absent: diastolic murmur, gallop, rubs, systolic murmur - GI/Abdominal GI/Abdominal exam: Present: normal bowel sounds, soft. Absent: distended, hepatomegaly, tenderness - Extremities Exam Extremities exam: Present: normal capillary refill, normal inspection, warm, radial pulses palpable and symmetrical. Absent: calf tenderness, cyanotic, pedal edema, tenderness - Neurological Exam Neurological exam: Present: alert, oriented X3, no focal deficits. Absent: facial droop, speech deficit - Skin Skin exam: Present: dry, intact, normal color, warm. Absent: rash Internal Medicine: Result - Labs CBC & Chem 7: 06/09/17 05:38 06/09/17 05:38 Labs: Short CBC 06/09/17 Range/Units 05:38 WBC 10.5 (4.3-11.1) K/mcL Hgb 12.3 L D (12.9-16.9) g/dL Hct 37.6 (37.5-50.1) % Plt Count 115 L (140-400) K/mcL Neutrophils # 8.2 (1.6-8.9) K/mcL BMP 06/09/17 05:38 Sodium 138 Potassium 3.7 Chloride 106 Carbon Dioxide 23 BUN 19 Creatinine 0.89 Glucose 175 H Calcium 8.5 L Cardiac Enzymes 06/09/17 06/09/17 Range/Units 05:38 11:38 Troponin I 0.03 < 0.03 (< 0.04) ng/mL Liver Function 06/09/17 Range/Units 05:38 Total Bilirubin 2.0 H (0.3-1.0) mg/dL AST 15 (13-39) Units/L ALT 15 (7-52) Units/L Alkaline Phosphatase 42 (34-104) Units/L Albumin 3.9 (3.5-5.7) g/dL - ABG Interpretation ABG results: PT/INR, D-dimer PT 13.6 Seconds (9.4-12.1) H 06/09/17 05:38 Consult Discharge Plan - Plan Referrals: Lisandra Stevenson, DIE SETTER [Primary Care Provider] -
[2017-06-10] MEDS: Ipratropium/Albuterol Neb 3 ML IH SCH ×2 (04:15→10:47)
[2017-06-10 06:24] LABS: Basophils % 0.3 %; Red Blood Count 4.02 M/mcL (4.19-5.50)
[2017-06-10 06:26] LABS: Eosinophils # 0.3 K/mcL (0.0-0.6); Eosinophils % 4.5 %; Hematocrit 35.4 % (37.5-50.1); Hemoglobin 11.4 g/dL (12.9-16.9); Immature Granulocytes % 0.3 % (0-4); Immature Platelets 3.5 % (1.1-6.1); Lymphocytes # 1.5 K/mcL (0.6-4.6); Lymphocytes % 22.5 %; Mean Corpuscular HGB Conc 32.2 g/dL (31.6-35.5); Mean Corpuscular Hemoglobin 28.4 pg (28.0-33.3); Mean Corpuscular Volume 88.1 fL (83.0-100.0); Monocytes # 0.6 K/mcL (0.0-1.3); Monocytes % 9.5 %; Neutrophils # 4.2 K/mcL (1.6-8.9); Nucleated Red Blood Cells 0.3 /100 WBC (0); Platelet Count 100 K/mcL (140-400); Red Cell Distribution Width 13.9 % (11.5-14.5); Segmented Neutrophils % 62.9 %
[2017-06-10] MEDS: *HR* Heparin 5,000 UNIT/ML VIAL SQ SCH (06:34)
[2017-06-10 06:45] LABS: BUN/Creatinine Ratio 21 (6-26); Blood Urea Nitrogen 21 mg/dL (8-23); Calcium 8.3 mg/dL (8.6-10.3); Carbon Dioxide 27 mEq/L (23-29); Chloride 108 mEq/L (98-107); Glucose 95 mg/dL (70-105); Osmolality,Calculated 289 (280-300); Potassium 4.1 mEq/L (3.5-5.1); Sodium 138 mEq/L (136-145); eGFR For African Americans > 60 (> 60); eGFR For Non-African Americans > 60 (> 60)
[2017-06-10] MEDS ORDERED: Perflutren Lipid Microsphere 1.3 ML in 0.9 % Sodium Chloride 8.7 ML IVP ONE (07:27)
[2017-06-10 08:45] VITALS: BP 114/64
[2017-06-10] MEDS: Lisinopril 20 MG TABLET PO SCH (09:12)
[2017-06-10] MEDS: Famotidine 20 MG TABLET PO SCH (09:12)
[2017-06-10] MEDS: *HR* Digoxin 0.25 MG TABLET PO SCH (09:12)
[2017-06-10] MEDS: *HR* OxyCODONE/APAP 10/325 TABLET PO PRN (09:12)
[2017-06-10] MEDS: Aspirin Enteric Coated 325 MG Tablet PO SCH (09:13)
[2017-06-10] MEDS: cefTRIAXone 2,000 MG in Water for inj. (sterile) 20 ML 20 ML IVP SCH (09:13)
[2017-06-10] MEDS: diazePAM 5 MG TABLET PO SCH (09:13)
[2017-06-10] MEDS: Azithromycin 500 MG in D5% in Water 250 ML IVPB SCH (09:13)
--- NOTE | 2017-06-10 09:48 | Discharge Summary ---
Orders not resulted at time of discharge: Pending orders 06/10/17 08:44 Occult Blood,Stool [BF] Routine 06/11/17 04:00 Basic Metabolic Panel AM 0400 Complete Blood Count [HEME] AM 0400 06/12/17 04:00 Basic Metabolic Panel AM 0400 Complete Blood Count [HEME] AM 0400 Date of Encounter: 06/10/17 Time of Encounter: 09:25 - Discharge Diagnosis (1) Community acquired pneumonia Priority: Primary Status: Acute Comments: 1 week history of productive cough, pleuritic chest pain, dyspnea, and fever. Pt states that he is significantly better today and is ready to go home. He is ambulatory in the room without difficulty. No SIRS or sepsis criteria No leukocytosis, pt is on room air, lungs are clear and diminished throughout. CURB65 score 1 for age > 65. Low risk, 2.7% for 30 day mortality. Pt will be sent home with Zithromax and Omnicef Qualifiers: Laterality: left Lung location: lower lobe of lung Qualified Code(s): J18.1 - Lobar pneumonia, unspecified organism (2) Sepsis Priority: Secondary Status: Resolved Comments: Resolved. Qualifiers: Sepsis type: sepsis due to unspecified organism Qualified Code(s): A41.9 - Sepsis, unspecified organism (3) Chest pain Priority: Secondary Status: Acute Comments: Likely pleuritic in nature. Pain is not reproducible. He denies chest pain, resps unlabored. Troponins negative, chest xray negative for acute disease, CTA chest shows pneumonia. EKG NSR without ST changes Telemetry NSR. Qualifiers: Chest pain type: chest pain on breathing Qualified Code(s): R07.1 - Chest pain on breathing; R07.81 - Pleurodynia (4) DVT prophylaxis Priority: Secondary Status: Acute Comments: Heparin SQ, pt has been ambulatory. Hospital course: Mr. Reed is a 77 year old male - Time Spent with Patient Total time spent providing and/or coordinating discharge services: - Discharge Medications Prescriptions: Azithromycin [Zithromax] 250 mg PO DAILY #5 tablet Cefdinir [Omnicef] 300 mg PO BID #14 capsule Home Medications: Albuterol Sulfate [Ventolin Hfa] 18 gm IH Q4H PRN 05/14/17 [History] Aspirin [Ecotrin] 325 mg PO DAILY 05/14/17 [History] Carvedilol 12.5 mg PO BID 05/14/17 [History] Digoxin [Lanoxin] 250 mcg PO DAILY 05/14/17 [History] Escitalopram [Lexapro] 10 mg PO DAILY 05/14/17 [History] Famotidine [Heartburn Prevention] 20 mg PO BID 05/14/17 [History] Loratadine [Claritin] 10 mg PO DAILY PRN 05/14/17 [History] Lovastatin 40 mg PO DAILY 05/14/17 [History] Quinapril HCl [Accupril] 20 mg PO DAILY 05/14/17 [History] Spironolactone [Aldactone] 25 mg PO DAILY 05/14/17 [History] Zolpidem [Ambien] 5 mg PO HS 05/14/17 [History] Ibuprofen [Motrin] 800 mg PO DAILY 06/09/17 [History] Oxycodone HCl/Acetaminophen [Percocet 10-325 mg Tablet] 1 each PO Q6HR PRN 06/09 [History] diazePAM [Valium] 10 mg PO BID 06/09/17 [History] Azithromycin [Zithromax] 250 mg PO DAILY #5 tablet 06/10/17 [Rx] Cefdinir [Omnicef] 300 mg PO BID #14 capsule 06/10/17 [Rx] Ipratropium/Albuterol Neb [Duoneb] 3 ml IH [id number] inhsol 06/10/17 [Rx] Allergies/Adverse Reactions: 3 Allergy/AdvReac Type Severity Reaction Status Date / Time No Known Allergies Allergy Verified 06/08/17 21:31 Date of admission: 06/09/17 03:03 Primary care physician: Lisandra Stevenson CNP Discharging clinician: Sandrine Bautista Anticipated date of discharge: 06/10/17 - Constitutional Vitals: Temp Pulse Resp BP Pulse Ox 97.4 F L 70 18 114/64 96 06/10/17 08:44 06/10/17 08:44 06/10/17 08:44 06/10/17 08:44 06/10/17 08:44 General appearance: Present: cooperative, A&O X 3, pleasant, no acute distress, answers questions appropriately - Head Head exam: Present: atraumatic, normal inspection, normocephalic - Eye Eye exam: Present: normal appearance, conjuntiva pink, sclera anicteric - Neck Neck exam general surgery: Present: supple, trachea midline. Absent: lymphadenopathy, tenderness - Respiratory Respiratory exam: Present: chest wall tenderness, CTAB. Absent: accessory muscle use, rales, respiratory distress, rhonchi, wheezes - Cardiovascular Cardiovascular exam: Present: RRR, +S1, +S2. Absent: diastolic murmur, gallop, rubs, systolic murmur - GI/Abdominal GI/Abdominal exam: Present: normal bowel sounds, soft. Absent: distended, hepatomegaly, tenderness - Extremities Exam Extremities exam: Present: normal capillary refill, normal inspection, warm, radial pulses palpable and symmetrical. Absent: calf tenderness, cyanotic, pedal edema, tenderness - Neurological Exam Neurological exam: Present: alert, oriented X3, no focal deficits. Absent: facial droop, speech deficit - Skin Skin exam: Present: dry, intact, normal color, warm. Absent: rash - Patient Status Disposition: Home, Self-Care Condition: Good Functional capacity at discharge: independent ambulation Overall status at discharge: patient is progressing back to baseline - Discharge Instructions Follow Up With: Lisandra Stevenson CNP [Primary Care Provider] - Additional Instructions: Please follow up with your PCP in the next 7-10 days for a recheck. Take your medications as directed. Your antibiotics have been called into your pharmacy. Return to the ER immediately if your symptoms return or worsen, or if you have any other problems or concerns. REturn to the ER if your cough worsens, you have any difficulty breathing, or if you develop a fever, weakness, or confusion. Take your other medications as directed and return to your normal diet and activities as tolerated. - Diet and Activity Activity: increase activity as tolerated Diet: advance to your usual diet
--- NOTE | 2017-06-14 11:48 | Electrocardiograph Report ---
[place] [id number] Test Date: 2017-06-08 Pat Name: Tone Reed Department: 104 Room: 3B Gender: M Blind Escort: BETZAIDA : 1940 Requested By: Nomi Vasquez Order Number: [id number] Reading MD: Baljeet Stephens Measurements Intervals [place] Rate: 75 P: 40 MS: 270 QRS: -19 QRSD: 93 T: 112 QT: 344 QTc: 372 Interpretive Statements SINUS RHYTHM WITH FIRST DEGREE AV BLOCK SEPTAL MYOCARDIAL INFARCTION, OF INDETERMINATE AGE MODERATE T-WAVE ABNORMALITY, CONSIDER ANTEROLATERAL ISCHEMIA Electronically Signed On 06-14-2017 11:46:22 EDT by Baljeet Stephens
== END 2017-06-10 11:29 | disposition home or self-care (01) | DRG 871 ==
LOC: EMEROO 21:11 → 3BNU 21:11
PROVIDERS: ADMIT Pediatrics; ATTEND Registered Nurse